=== PATIENT | male | born 1935 | race Caucasian/White ===

== ENCOUNTER 2017-06-15 11:52 | Emergency (ER) | payer OTHER ==
[2017-06-15] MEDS: DIPHENHYDRAMINE 50 MG INJ IM (13:06)
[2017-06-15] MEDS: predniSONE 20 MG TAB PO (13:06)
== END 2017-06-15 14:20 | disposition home or self-care (01) ==
LOC: FTE 11:52
DX: L30.9 Dermatitis, unspecified (principal); I10 Essential (primary) hypertension; J45.909 Unspecified asthma, uncomplicated; Z79.82 Long term (current) use of aspirin
CPT/HCPCS: 96372; 99284-25